=== PATIENT | female | born 1950 | race Caucasian/White ===

== ENCOUNTER 2017-06-17 10:27 | Emergency (ER) | payer MEDICARE, OTHER ==
[~2017-06-17 10:27] MED LIST changes: -ASPI-1471 PO; -METO50TA19 PO
[2017-06-17] MEDS ORDERED: NS(*) 0.9% 1000 ML BAG 1,000 ML IV ONE (10:38)
[2017-06-17] MEDS ORDERED: HYDROmorphone* 1 MG/ML 1 MG/ML ML IVP ONE ×2 (10:40→12:20)
[2017-06-17] MEDS ORDERED: METO50TA19 PO (10:44)
[2017-06-17] MEDS ORDERED: ASPI-1471 PO (10:44)
--- NOTE | 2017-06-17 10:51 | ER Report ---
History and Physical Time Seen By MD: 10:28 Hx. of Stated Complaint: patient was in the yard when the dog jumped up and knocked her down; her left knee and ankle patient states that her pain was 10/10 then ems gave 100 of fentanyl and 4 of zofran and took the pain to a 3 HPI/ROS CHIEF COMPLAINT: Following her yard twisting her left knee and unable to bear weight. HISTORY OF PRESENT ILLNESS: 67-year-old female was out for walk in her yard when the dog jumped up on her and she twisted her knee and fell down. Patient was unable to bear weight and was on the ground with a blanket only for 30 minutes outside cold. Knee is severely swollen is neurovascular intact she is brought in by EMS. An IV was started and patient was given 100 g of fentanyl and 4 mg of Zofran IV push on the way in. Initial pain was 10/10 and on fentanyl was 3/10. Upon arrival to the emergency department the pain was rising again and back up to a 7/10. Patient had a cough for several months but for the last 2 weeks she's been fine. Denies any other pain or problems with full range of motion all extremities except for the left knee and she does note that the left ankle has plates and screws in it from an open reduction internal fixation from previous fracture. She also had plates and screws placed in open reduction internal fixation left humeral fracture years ago. She is also had surgery on her rotator cuff on the right side. Denies fevers aches chills, sore throat, headaches, nausea vomiting or diarrhea. There is no frequency or urgency. REVIEW OF SYSTEMS: Constitutional: No fever, no chills. Eyes: No discharge. ENT: No sore throat. Cardiovascular: No chest pain, no palpitations. Respiratory: No cough, no shortness of breath. Gastrointestinal: No abdominal pain, no vomiting. Genitourinary: No hematuria. Musculoskeletal: No back pain. Patient has severe left knee pain and it is swollen. She started bed approximately 30 and unable to move it. It is slightly rotated out of the foot but her hip has no tenderness or pain. Skin: No rashes. Neurological: No headache. Allergies: Coded Allergies: No Known Drug Allergies (Unverified , 06/17/17) Home Meds Reported Medications Aspirin (ASPIR 81) 81 Mg Tablet.dr, 81 MG PO QDAY, TAB 06/17/17 Metoprolol Succinate (METOPROLOL SUCCINATE) 50 Mg Tab.er.24h, 2 TAB PO QDAY, TAB 06/17/17 Discontinued Scripts Hydrocodone Bit/Acetaminophen (HYDROCODON-ACETAMINOPHEN 5-325) 1 Each Tablet, 1- 2 EACH PO Q6H Y for PAIN, #30 TAB Prov:BLAISE TIERNEY PA-C 05/15/16 Ondansetron (ZOFRAN ODT) 4 Mg Tab.rapdis, 4 MG PO Q6H Y for NAUSEA/VOMITING, # 20 TAB.RUTH Prov:BLAISE TIERNEY PA-C 05/15/16 Sulfamethoxazole/Trimet 800-160 Mg Tab (BACTRIM DS TABLET) 1 Each Tablet, 1 TAB PO Q12H, #10 TAB Prov:BLAISE TIERNEY PA-C 05/15/16 Past Medical/Surgical History Patient notes she has had right rotator cuff surgery, left humerus open reduction internal fixation with plates and screws and right open reduction internal fixation left ankle with plates and screws. She denies any other surgeries. Reviewed Nurses Notes: Yes Hx Substance Use Disorder: No Hx Alcohol Use: No Constitutional Vital Sign - Last 24 Hours 06/17/17 06/17/17 06/17/17 06/17/17 10:27 10:30 10:33 10:57 Temp 99.7 Pulse ??? 59 55 Resp 19 B/P (MAP) 158/73 158/73 (101) Pulse Ox 95 96 O2 Delivery Room Air 06/17/17 06/17/17 06/17/17 06/17/17 11:00 11:27 11:30 11:57 Pulse 58 59 B/P (MAP) 171/61 (97) 145/82 (103) Pulse Ox 86 87 06/17/17 06/17/17 06/17/17 06/17/17 12:00 12:26 12:27 12:30 Pulse 56 B/P (MAP) 145/64 (91) 143/57 (85) Pulse Ox 97 O2 Flow Rate 2.0 06/17/17 06/17/17 06/17/17 06/17/17 12:57 13:00 13:27 13:30 Pulse 58 57 B/P (MAP) 154/65 (94) 139/63 (88) Pulse Ox 98 97 Physical Exam General Appearance: The patient is alert, has no immediate need for airway protection and no signs of toxicity. Patient had pain transferring from [facility] to [facility]. Note her pain is 7/10 in the knee and unable to bear weight or move the knee in any direction. It is splinted in position of comfort with a pillow in place. Eyes: Pupils equal and round no pallor or injection. ENT, Mouth: Mucous membranes are moist. Respiratory: There are no retractions, lungs are clear to auscultation. Cardiovascular: Regular rate and rhythm. Without gallops murmurs or rubs regular rate and rhythm Gastrointestinal: Abdomen is soft and non tender, no masses, bowel sounds normal. Neurological: No numbness or tingling to the toes or fingers. She is oriented 3 and alert. Skin: Warm and dry, no rashes. Musculoskeletal: Neck is supple non tender. Extremities are nontender, nonswollen and have full range of motion exception of the left knee that is swollen and splinted in place at 30 with a pillow. Patient is unable to move the knee. Exam by no she's neurovascular intact to the tips of the toes with good capillary refill and sensation. DIFFERENTIAL DIAGNOSIS: After history and physical exam differential diagnosis was considered for knee injury while walking including but not limited to fracture, ACL injury, contusion, muscular strain, and meniscus injury. Suspicious for fracture and/or cruciate or meniscal injury. X-ray ordered and may need to get CT of the knee. Medical Decision Making Data Points Result Diagram: 06/17/17 1110 06/17/17 1110 Laboratory Hematology Test 06/17/17 11:10 Red Blood Count 4.74 M/uL (4.17-5.56) Mean Corpuscular Volume 83.1 fL (80.0-96.0) Mean Corpuscular Hemoglobin 28.0 pg (26.0-33.0) Mean Corpuscular Hemoglobin Concent 33.7 g/dL (32.0-36.0) Red Cell Distribution Width 15.4 % (11.5-14.5) Mean Platelet Volume 8.4 fL (7.2-11.1) Neutrophils (%) (Auto) 72.4 % (39.4-72.5) Lymphocytes (%) (Auto) 16.7 % (17.6-49.6) Monocytes (%) (Auto) 7.7 % (4.1-12.4) Eosinophils (%) (Auto) 2.7 % (0.4-6.7) Basophils (%) (Auto) 0.5 % (0.3-1.4) Nucleated RBC Relative Count (auto) 0.0 /100WBC Neutrophils # (Auto) 4.5 K/uL (2.0-7.4) Lymphocytes # (Auto) 1.0 K/uL (1.3-3.6) Monocytes # (Auto) 0.5 K/uL (0.3-1.0) Eosinophils # (Auto) 0.2 K/uL (0.0-0.5) Basophils # (Auto) 0.0 K/uL (0.0-0.1) Nucleated RBC Absolute Count (auto) 0.00 K/uL Peripheral Blood Smear No Y/N Sodium Level 141 mmol/L (137-145) Potassium Level 3.9 mmol/L (3.5-5.0) Chloride Level 109 mmol/L (98-107) Carbon Dioxide Level 21 mmol/L (22-31) Blood Urea Nitrogen 23 mg/dl (7-18) Creatinine 0.80 mg/dl (0.52-1.04) Glomerular Filtration Rate Calc > 60.0 Random Glucose 94 mg/dl (75-110) Calcium Level 8.7 mg/dl (8.4-10.2) Chemistry Test 06/17/17 11:10 White Blood Count 6.2 k/uL (4.5-11.0) Red Blood Count 4.74 M/uL (4.17-5.56) Hemoglobin 13.3 g/dL (12.0-16.0) Hematocrit 39.4 % (34.0-47.0) Mean Corpuscular Volume 83.1 fL (80.0-96.0) Mean Corpuscular Hemoglobin 28.0 pg (26.0-33.0) Mean Corpuscular Hemoglobin Concent 33.7 g/dL (32.0-36.0) Red Cell Distribution Width 15.4 % (11.5-14.5) Platelet Count 178 K/uL (150-450) Mean Platelet Volume 8.4 fL (7.2-11.1) Neutrophils (%) (Auto) 72.4 % (39.4-72.5) Lymphocytes (%) (Auto) 16.7 % (17.6-49.6) Monocytes (%) (Auto) 7.7 % (4.1-12.4) Eosinophils (%) (Auto) 2.7 % (0.4-6.7) Basophils (%) (Auto) 0.5 % (0.3-1.4) Nucleated RBC Relative Count (auto) 0.0 /100WBC Neutrophils # (Auto) 4.5 K/uL (2.0-7.4) Lymphocytes # (Auto) 1.0 K/uL (1.3-3.6) Monocytes # (Auto) 0.5 K/uL (0.3-1.0) Eosinophils # (Auto) 0.2 K/uL (0.0-0.5) Basophils # (Auto) 0.0 K/uL (0.0-0.1) Nucleated RBC Absolute Count (auto) 0.00 K/uL Peripheral Blood Smear No Y/N Glomerular Filtration Rate Calc > 60.0 Calcium Level 8.7 mg/dl (8.4-10.2) EKG/Imaging Imaging Exam type: KNEE LIMITED LEFT History: twisting fall unable to bear weight marked swelling. Comparison: None. Findings: There is a comminuted impacted fracture through the left tibial epiphysis, metaphysis with a vertical component extending into the proximal diaphysis. There is an articular component extending along the lateral compartment and may intersect the tibial spines. On the crosstable lateral view there is a fat fluid level in the suprapatellar bursa consistent with a hemarthrosis. Incidentally noted is a approximate 1.8 cm lesion in the distal metaphysis of the left femur which appears to contain chondroid matrix. This could represent an incidental enchondroma although other chondroid lesions not excluded IMPRESSION: 1. Noted impacted fracture through the left tibial epiphysis, metaphysis and diaphysis with articular extension into the lateral compartment and possibly the tibial spines. Further evaluation with CT would be helpful. Fat fluid level consistent with hemarthrosis in the suprapatellar bursa 1.8 cm incidental lesion in the distal metaphysis of the left femur which appears to contain chondroid matrix. This may simply represent an incidental enchondroma although other chondroid lesions not excluded CT of the left knee INDICATION: Tibial plateau fracture. COMPARISON: None available Technique: Axial CT images were obtained through the left knee. Reformatted coronal and sagittal images were reviewed. One of the following dose optimization techniques was utilized in the performance of this exam: automated exposure control; adjustment of the mA and/or kV according to the patient's size ; or use of an iterative reconstruction technique. Specific details can be referenced in the facility's radiology CT exam operational policy. FINDINGS: There is a complex intra-articular fracture involving the medial and lateral tibial plateaus and extending across the base of the tibial spines and to the medial margin of the proximal tibial shaft. There is also minimal cortical depression of the lateral tibial plateau adjacent to the tibial spine measuring approximately 2.5 mm. There is mild cortical offset at the posterior lateral tibial plateau seen on image 52 of the sagittal series by approximately 4.5 mm. Fracture also extends to the posterior proximal tibial shaft and extends distally by approximately 7 cm. There is a moderate to large sized likely hemarthrosis seen. Mild marginal osteophytosis of the medial and lateral compartments also seen. There is a partially calcified likely chondroid lesion seen within the distal femur which measures approximately 2.9 cm in maximal dimension. IMPRESSION: 1. Complex intra-articular fracture involving the medial and lateral tibial plateaus and proximal tibial shaft as described above in detail. ED Course/Re-evaluation ED Course 06/17/2017 10:50:07 am Patient presented to the ED with 100 g of fentanyl and 4 mg of Zofran IV push. Pain continues to increased this time and she was ordered 1 mg of Dilaudid. She will get this before she goes from a knee x-ray. 06/17/2017 1:26:08 pm : Discussed with Dr. Demetrio Jack orthopedist the comminuted tibial plateau fracture. He noted that he was a Schatzki 5 tibial plateau fracture and said that he would need surgical fixation at [facility] with [facility]. We will call them 4th week consultation at this time. 06/17/2017 1:45:25 pm Called [facility] in [place] and spoke with Dr. Maria Ines Newman orthopedist. She accepted the patient to come through the emergency room at 1342. Patient will need special surgical fixation which were unable to do at this time at [facility]. This was explained to the patient and we will send her down by ambulance. Decision to Disposition Date: Jun 17, 2017 Decision to Disposition Time: 13:27 Depart Departure Latest Vital Signs Vital Signs Date Time Temp Pulse Resp B/P (MAP) Pulse Ox O2 Delivery O2 Flow Rate FiO2 06/17/17 13:30 139/63 (88) 06/17/17 13:27 57 97 06/17/17 12:26 2.0 06/17/17 10:30 99.7 19 Room Air Impression: Primary Impression: Tibial plateau fracture, left Condition: Condition Unchanged Disposition: XFER TO ACUTE CARE [facility] FILEMON GAN MD Jun 17, 2017 10:51
[2017-06-17 11:21] LABS: PLATELET COUNT, AUTOMATED 178 K/uL (150-450)
--- NOTE | 2017-06-17 12:23 | RADIOLOGY IMAGING REPORT ---
FACILITY: [facility] PATIENT NAME: Susan Castanon : 1950 MR: [id number] V: [id number] EXAM DATE: ORDERING PHYSICIAN: FILEMON GAN TECHNOLOGIST: Location: [facility] Patient: Susan Castanon : 1950 Visit/Account:[id number] Date of Sevice: 06/17/2017 Exam type: KNEE LIMITED LEFT History: twisting fall unable to bear weight marked swelling. Comparison: None. Findings: There is a comminuted impacted fracture through the left tibial epiphysis, metaphysis with a vertical component extending into the proximal diaphysis. There is an articular component extending along th e lateral compartment and may intersect the tibial spines. On the crosstable lateral view there is a fat fluid level in the suprapatellar bursa consistent with a hemarthrosis. Incidentally noted is a approximate 1.8 cm lesion in the distal metaphysis of the left femur which appears to contain chondro id matrix. This could represent an incidental enchondroma although other chondroid lesions not exclu ded IMPRESSION: 1. Noted impacted fracture through the left tibial epiphysis, metaphysis and diaphysis with articula r extension into the lateral compartment and possibly the tibial spines. Further evaluation with CT would be helpful. Fat fluid level consistent with hemarthrosis in the suprapatellar bursa 1.8 cm incidental lesion in the distal metaphysis of the left femur which appears to contain chondroi d matrix. This may simply represent an incidental enchondroma although other chondroid lesions not e xcluded Report Dictated By: Diane Butler MD at 06/17/2017 12:10 PM Report E-Signed By: Diane Butler MD at 06/17/2017 12:18 PM WSN:[email or web address]
--- NOTE | 2017-06-17 13:01 | RADIOLOGY IMAGING REPORT ---
FACILITY: [facility] PATIENT NAME: Susan Castanon : 1950 MR: [id number] V: [id number] EXAM DATE: ORDERING PHYSICIAN: FILEMON GAN TECHNOLOGIST: Location: [facility] Patient: Susan Castanon : 1950 Visit/Account:[id number] Date of Sevice: 06/17/2017 CT of the left knee INDICATION: Tibial plateau fracture. COMPARISON: None available Technique: Axial CT images were obtained through the left knee. Reformatted coronal and sagittal selvin ges were reviewed. One of the following dose optimization techniques was utilized in the performance of this exam: automated exposure control; adjustment of the mA and/or kV according to the patient's s ize; or use of an iterative reconstruction technique. Specific details can be referenced in the [facility]'s radiology CT exam operational policy. FINDINGS: There is a complex intra-articular fracture involving the medial and lateral tibial plateaus and exte nding across the base of the tibial spines and to the medial margin of the proximal tibial shaft. The re is also minimal cortical depression of the lateral tibial plateau adjacent to the tibial spine pako suring approximately 2.5 mm. There is mild cortical offset at the posterior lateral tibial plateau se en on image 52 of the sagittal series by approximately 4.5 mm. Fracture also extends to the posterior proximal tibial shaft and extends distally by approximately 7 cm. There is a moderate to large sized likely hemarthrosis seen. Mild marginal osteophytosis of the medial and lateral compartments also seen. There is a partially calcified likely chondroid lesion seen within the distal femur which measures ap proximately 2.9 cm in maximal dimension. IMPRESSION: 1. Complex intra-articular fracture involving the medial and lateral tibial plateaus and proximal tib ial shaft as described above in detail. Report Dictated By: Ramon Taveras MD at 06/17/2017 12:54 PM Report E-Signed By: Ramon Taveras MD at 06/17/2017 12:58 PM WSN:[email or web address]
[2017-06-17] MEDS ORDERED: LORazepam 2 MG/ML VIAL IVP ONE (14:00)
[2017-06-17 14:30] VITALS: BP 141/62
== END 2017-06-17 14:41 | disposition short-term general hospital (02) ==
LOC: ER 10:28
DX: S82.145A Nondisplaced bicondylar fracture of left tibia, initial encounter for closed fracture (principal); W54.1XXA Struck by dog, initial encounter
CPT/HCPCS: 36415; 73560; 73700; 85025; 96361; 96374; 96375; 99285; J1170; J2060; J7030; 82310; 82374; 82435; 82565; 82947; 84132; 84295; 84520

== ENCOUNTER → 2017-06-17 | Outpatient (CLI) | payer MEDICARE, OTHER ==
[~2017-06-17] MED LIST: ASPI-1471 PO; HYDR-385 PO; METO50TA19 PO; ONDA4TAB PO; SULF-198 PO
== END ==
LOC: AMB 14:21
PROVIDERS: ATTEND Nurse Practitioner
DX: S82.242A Displaced spiral fracture of shaft of left tibia, initial encounter for closed fracture (principal); S82.442A Displaced spiral fracture of shaft of left fibula, initial encounter for closed fracture; W18.31XA Fall on same level due to stepping on an object, initial encounter; Y92.017 Garden or yard in single-family (private) house as the place of occurrence of the external cause
CPT/HCPCS: A0425; A0426

== ENCOUNTER → 2017-06-17 | Outpatient (CLI) | payer MEDICARE, OTHER | LOC: AMB 09:34 | PROVIDERS: ATTEND Nurse Practitioner | DX: M25.562 Pain in left knee (principal); W18.31XA Fall on same level due to stepping on an object, initial encounter; Y93.9 Activity, unspecified; Y92.017 Garden or yard in single-family (private) house as the place of occurrence of the external cause | CPT/HCPCS: A0425; A0433 ==

== ENCOUNTER → 2018-04-14 | Outpatient (CLI) | payer MEDICARE, OTHER ==
[~2018-04-14] MED LIST changes: +ASPI-1471 PO; +METO50TA19 PO
--- NOTE | 2018-04-14 10:45 | RADIOLOGY IMAGING REPORT ---
FACILITY: PATIENT NAME: Susan Castanon : 1950 MR: [id number] V: [id number] EXAM DATE: ORDERING PHYSICIAN: ZAY SINGH TECHNOLOGIST: Location: [facility] Patient: Susan Castanon : 1950 Visit/Account:[id number] Date of Sevice: 04/14/2018 Thoracic spine, three views. HISTORY: Thoracic back pain. COMPARISON: None. Minimal scoliosis is present in the thoracolumbar spine. Moderate-sized endplate osteophytes and mod erate to severe loss of disc height are present at all lumbar and upper thoracic levels. Vacuum phen omenon is present at several levels. Confluent osteophytes are present in the lower thoracic spine. The cervical thoracic junction and the thoracic posterior elements are partially obscured. Degenera tive changes are present in the lower cervical spine. The bones are osteopenic. Metal hardware proj ects on the arms and upper neck. Metal anchors project on the shoulders. Several mild chronic appea ring wedge deformities are present in the lower thoracic spine. IMPRESSION: Moderate to severe multilevel degenerative disc disease. Diffuse idiopathic skeletal hyperostosis. Several mild lower thoracic wedge deformities, probably chronic. Report Dictated By: Daniel Preston MD at 04/14/2018 10:38 AM Report E-Signed By: Daniel Preston MD at 04/14/2018 10:41 AM WSN:[email or web address]
== END ==
LOC: RAD 09:39
PROVIDERS: ATTEND Physician Assistant
DX: M51.36 Other intervertebral disc degeneration, lumbar region (principal); M48.10 Ankylosing hyperostosis [Forestier], site unspecified
CPT/HCPCS: 72070